=== PATIENT | female | born 1945 | race Caucasian/White ===

== ENCOUNTER 2016-04-20 09:50 | Outpatient (RCR) | payer MEDICARE, OTHER ==
--- OUTSIDE RECORDS SUMMARY | 2016-02-01 09:23 | XMS REPORT | Continuity of Care Document ---
Author Author [facility] Organization [facility] Address Unknown Phone Unavailable Care Team Providers Care Risk Control Consultant Name Role Phone SUNITHA LOBO MD PCP Insurance Providers Payer Name Policy Number Subscriber Name Relationship [employer] [id number] Petrona Lee 20 Self / Same As Patient [employer] [id number] Petrona Lee 20 Self / Same As Patient Advance Directives Directive Response Recorded Date/Time Advance Directives Yes 01/25/15 4:51am Health Care Power of Head Of It No 01/25/15 4:51am Organ Donor No 01/25/15 4:51am Problems No problem information available. Medications Current Home Medications Medication Dose Units Route Directions Days/Qty Instructions Start Date Budesonide/Formoterol Fumarate 10.2 Gm 2 Puff Inhalation Twice A Day 08/09/13 Fexofenadine Hcl 60 Mg 60 Mg Oral Daily 08/09/13 Albuterol 8.5 Gm 1 Puff Inhalation Every 4HRS as needed for Shortness Of Breath PRN SHORTNESS OF BREATH 08/09/13 Rosuvastatin Calcium 20 Mg 0.5 Each Oral Bedtime 04/02/14 Omeprazole 20 Mg 20 Mg Oral Daily 30 04/02/14 Ondansetron 8 Mg 8 Mg Oral Every 8HRS as needed for Nausea 04/02/14 Albuterol Sulfate 8.5 Gm 2 Puff Inhalation Every 4HRS as needed for Wheezing 1 01/25/15 Levofloxacin 500 Mg 500 Mg Oral Daily 10 01/25/15 D-Methorphan Hb/Prometh Hcl 118 Ml 5-10 Ml Oral Every 4HRS as needed for Cough 120 01/25/15 Past Home Medications Medication Directions Ordered Status Rosuvastatin Calcium 10 Mg Tablet, 10 Mg Oral Bedtime 08/09/13 Discontinued Scopolamine 1.5 Mg Patch, 1.5 Mg Transderm Once for Nausea/Vomiting 08/14/13 Discontinued Oxycodone/Acetaminophen 1 Tab Tablet, 1-2 Tab Oral Give Every 4 Hrs On Schedule as needed for Pain 08/15/13 Discontinued Ondansetron Hcl 4 Mg Tab, 4 Mg Oral Every 6 Hours as needed for Nausea/ Vomiting 08/15/13 Discontinued Social History Social History Problem Response Recorded Date/Time Alcohol Use Denies Use 01/25/2015 4:51am Recreational Drug Use No 01/25/2015 4:51am Recent Foreign Travel No 08/14/2013 5:54pm Recent Infectious Disease Exposure No 08/14/2013 5:54pm Hospitalization with Isolation Denies 09/04/2013 2:06pm Hospital Discharge Instructions Current inpatient/outpatient. Discharge instructions are currently unavailable. Plan of Care Prescriptions Functional Status No functional status results. Allergies, Adverse Reactions, Alerts Allergen Type Severity Reaction Status Last Updated Iodinated Contrast Media - IV Dye Allergy Severe HIVES Active 09/04/13 Codeine Allergy Intermediate RASH, CAN TAKE PERCOCET Active 04/09/14 Soap Allergy Unknown rash Active 09/05/13 povidone-iodine ([id number]) Allergy Unknown rash Active 09/05/13 Immunizations Name Given Type Date of Influenza Vaccine 12/11/13 Historical Tetanus Booster (TDap) Less than 5yrs Historical Vital Signs No known vital signs results. Results Laboratory Results Test Name Result Units Flags Reference Collection Date/Time Result Date/ Time Comments Triglycerides Level 133 MG/DL <150 08/17/2015 9:20am 08/17/2015 10: 23am Cholesterol Level 191 MG/DL < 200 08/17/2015 9:20am 08/17/2015 10:23am HDL Cholesterol 55 MG/DL 40-60 08/17/2015 9:20am 08/17/2015 10:23am LDL Cholesterol Direct 118 MG/DL 1-129 08/17/2015 9:20am 08/17/2015 10: 23am VLDL Cholesterol 27 MG/DL 5-40 08/17/2015 9:20am 08/17/2015 10:23am Thyroid Stimulating Hormone (TSH) 3.77 UIU/ML 0.35-4.94 08/17/2015 9: 20am 08/17/2015 10:53am Pending Laboratory Results Test Name Collection Date/Time Procedures No known history of procedures. Encounters Encounter Location Arrival/Admit Date Discharge/Depart Date Attending Provider Registered Clinic [facility] 08/17/15 9:10am SUNITHA LOBO MD Discharged Recurring [facility] 08/17/15 9:09am 11:59pm JIGNESH SIMMONS
[2016-02-01 09:55] LABS: BASOPHILS % (AUTO) 1 % (0-10); EOSINOPHILS # (AUTO) 0.2 10^3/uL (0.0-0.3); EOSINOPHILS % (AUTO) 3 % (0-10); LYMPHOCYTES # (AUTO) 0.9 X 10^3 (1.0-4.0); LYMPHOCYTES % (AUTO) 18 % (12-44); MEAN CORPUSCULAR HEMOGLOBIN 27 PG (25-34); MEAN CORPUSCULAR HGB CONC 33 G/DL (32-36); MEAN CORPUSCULAR VOLUME 80 FL (80-99); MEAN PLATELET VOLUME 12.9 FL (7.4-10.4); MONOCYTES # (AUTO) 0.5 X 10^3 (0.0-1.0); MONOCYTES % (AUTO) 10 % (0-12); NEUTROPHILS # (AUTO) 3.5 X 10^3 (1.8-7.8); NEUTROPHILS % (AUTO) 69 % (42-75); PLATELET COUNT 207 10^3/uL (130-400); RED BLOOD COUNT 4.35 10^6/uL (4.35-5.85); WHITE BLOOD COUNT 5.1 10^3/uL (4.3-11.0)
[2016-02-01 10:47] LABS: ALANINE AMINOTRANSFERASE 18 U/L (0-55); ALBUMIN 3.7 G/DL (3.2-4.5); ANION GAP 8 MMOL/L (5-14); ASPARTATE AMINO TRANSFERASE 19 U/L (5-34); BILIRUBIN,TOTAL 0.2 MG/DL (0.1-1.0); BLOOD UREA NITROGEN 22 MG/DL (7-18); BUN/CREATININE RATIO 28; CALCIUM 8.9 MG/DL (8.5-10.1); CARBON DIOXIDE 23 MMOL/L (21-32); CHLORIDE 108 MMOL/L (98-107); GFR ESTIMATED > 60; GLUCOSE 107 MG/DL (70-105); POTASSIUM 3.8 MMOL/L (3.6-5.0); SODIUM 139 MMOL/L (135-145); TOTAL PROTEIN 6.3 G/DL (6.4-8.2)
[~2016-04-20 09:50] MED LIST: ALBU8.5H2 IH; BUDE6HFA IH; D-ME118S7 PO; DENOSUMAB 60 MG/1 ML (PROLIA) CANCER CTR SQ SCH; FEXO-14 PO; FLUT9.9S NS; LEVO500T2 PO; OMEP20CA12 PO; ONDA8TAB13 PO; ONDN4T PO; OXYC1TAB87 PO; ROSU10TA12 PO; ROSU20TA14 PO; RT-ALBUINH IH; SCP1.5TD TD
[2016-04-20 09:53] LABS: BASOPHILS % (AUTO) 1 % (0-10); EOSINOPHILS # (AUTO) 0.2 10^3/uL (0.0-0.3); EOSINOPHILS % (AUTO) 3 % (0-10); LYMPHOCYTES % (AUTO) 22 % (12-44); MEAN CORPUSCULAR HEMOGLOBIN 25 PG (25-34); MEAN CORPUSCULAR HGB CONC 32 G/DL (32-36); MEAN CORPUSCULAR VOLUME 77 FL (80-99); MEAN PLATELET VOLUME 12.4 FL (7.4-10.4); MONOCYTES # (AUTO) 0.4 X 10^3 (0.0-1.0); MONOCYTES % (AUTO) 8 % (0-12); NEUTROPHILS # (AUTO) 3.1 X 10^3 (1.8-7.8); NEUTROPHILS % (AUTO) 66 % (42-75); PLATELET COUNT 198 10^3/uL (130-400); RED BLOOD COUNT 4.64 10^6/uL (4.35-5.85); RED CELL DISTRIBUTION WIDTH 15.8 % (10.0-14.5); WHITE BLOOD COUNT 4.7 10^3/uL (4.3-11.0)
[2016-04-20 10:24] LABS: ALANINE AMINOTRANSFERASE 20 U/L (0-55); ALBUMIN 3.8 G/DL (3.2-4.5); ANION GAP 10 MMOL/L (5-14); ASPARTATE AMINO TRANSFERASE 18 U/L (5-34); BILIRUBIN,TOTAL 0.3 MG/DL (0.1-1.0); BLOOD UREA NITROGEN 14 MG/DL (7-18); BUN/CREATININE RATIO 17; CALCIUM 9.1 MG/DL (8.5-10.1); CARBON DIOXIDE 23 MMOL/L (21-32); CHLORIDE 105 MMOL/L (98-107); CREATININE SERUM 0.84 MG/DL (0.60-1.30); GFR ESTIMATED > 60; GLUCOSE 126 MG/DL (70-105); POTASSIUM 4.2 MMOL/L (3.6-5.0); SODIUM 138 MMOL/L (135-145); TOTAL PROTEIN 6.5 G/DL (6.4-8.2)
== END 2016-05-01 | disposition home or self-care (01) ==
LOC: ONC 09:50
PROVIDERS: ATTEND Internal Medicine Hematology & Oncology
DX: C50.412 Malignant neoplasm of upper-outer quadrant of left female breast (principal); M85.80 Other specified disorders of bone density and structure, unspecified site; I89.0 Lymphedema, not elsewhere classified; J44.9 Chronic obstructive pulmonary disease, unspecified; E78.00 Pure hypercholesterolemia, unspecified; Z17.0 Estrogen receptor positive status [ER+]; Z90.13 Acquired absence of bilateral breasts and nipples; Z92.21 Personal history of antineoplastic chemotherapy; Z92.3 Personal history of irradiation; Z79.811 Long term (current) use of aromatase inhibitors; Z79.899 Other long term (current) drug therapy; Z45.2 Encounter for adjustment and management of vascular access device
CPT/HCPCS: 36591; 80053; 85025; 96372; 96523; 99213

== ENCOUNTER → 2016-08-18 | Outpatient (CLI) | payer MEDICARE, OTHER ==
[~2016-08-18] MED LIST changes: -DENOSUMAB 60 MG/1 ML (PROLIA) CANCER CTR SQ SCH
--- NOTE | 2016-08-18 10:48 | Diagnostic Imaging Report ---
Examination: DEXA scan. Indication: osteopenia Technique: Bone mineral density estimated based on dual energy radiography over the lumbar spine and femoral necks, was performed. Findings: The lumbar spine T-score is minus 2. This is a 3.5% increased density compared to 08/14/2014. T score over the left femoral neck is -1 and on the right side is also -1. This is a 7% increased density measurement compared to 2014. IMPRESSION: Osteopenia. Dictated by: Dictated on workstation # [id number]
== END ==
LOC: RAD 08:32
PROVIDERS: ATTEND Nurse Practitioner Adult Health
DX: M85.88 Other specified disorders of bone density and structure, other site (principal); C50.412 Malignant neoplasm of upper-outer quadrant of left female breast; Z92.29 Personal history of other drug therapy
CPT/HCPCS: 77080

== ENCOUNTER 2016-08-24 09:13 | Outpatient (RCR) | payer MEDICARE, OTHER ==
[2016-07-13 10:59] LABS: BASOPHILS % (AUTO) 1 % (0-10); EOSINOPHILS # (AUTO) 0.2 10^3/uL (0.0-0.3); EOSINOPHILS % (AUTO) 5 % (0-10); LYMPHOCYTES % (AUTO) 23 % (12-44); MEAN CORPUSCULAR HEMOGLOBIN 23 PG (25-34); MEAN CORPUSCULAR HGB CONC 31 G/DL (32-36); MEAN CORPUSCULAR VOLUME 74 FL (80-99); MEAN PLATELET VOLUME 11.8 FL (7.4-10.4); MONOCYTES # (AUTO) 0.4 X 10^3 (0.0-1.0); MONOCYTES % (AUTO) 10 % (0-12); NEUTROPHILS # (AUTO) 2.6 X 10^3 (1.8-7.8); NEUTROPHILS % (AUTO) 62 % (42-75); PLATELET COUNT 243 10^3/uL (130-400); RED BLOOD COUNT 4.28 10^6/uL (4.35-5.85); RED CELL DISTRIBUTION WIDTH 16.9 % (10.0-14.5); WHITE BLOOD COUNT 4.3 10^3/uL (4.3-11.0)
[2016-07-13 11:52] LABS: ALANINE AMINOTRANSFERASE 21 U/L (0-55); ALBUMIN 3.7 G/DL (3.2-4.5); ANION GAP 8 MMOL/L (5-14); ASPARTATE AMINO TRANSFERASE 19 U/L (5-34); BILIRUBIN,TOTAL 0.4 MG/DL (0.1-1.0); BLOOD UREA NITROGEN 16 MG/DL (7-18); BUN/CREATININE RATIO 20; CALCIUM 8.8 MG/DL (8.5-10.1); CARBON DIOXIDE 25 MMOL/L (21-32); CHLORIDE 106 MMOL/L (98-107); CREATININE SERUM 0.81 MG/DL (0.60-1.30); GFR ESTIMATED > 60; GLUCOSE 105 MG/DL (70-105); POTASSIUM 3.9 MMOL/L (3.6-5.0); SODIUM 139 MMOL/L (135-145); TOTAL PROTEIN 6.4 G/DL (6.4-8.2)
[~2016-08-24 09:13] MED LIST changes: +FERRIC CARBOXYMALTOSE (CANCER) 750 MG in NS (IVPB) CANCER CENTER 250 ML IV SCH
== END 2016-08-30 | disposition home or self-care (01) ==
LOC: ONC 09:13
PROVIDERS: ATTEND Internal Medicine Hematology & Oncology
DX: C50.412 Malignant neoplasm of upper-outer quadrant of left female breast (principal); M85.80 Other specified disorders of bone density and structure, unspecified site; I89.0 Lymphedema, not elsewhere classified; J44.9 Chronic obstructive pulmonary disease, unspecified; E78.00 Pure hypercholesterolemia, unspecified; Z17.0 Estrogen receptor positive status [ER+]; Z90.13 Acquired absence of bilateral breasts and nipples; Z92.21 Personal history of antineoplastic chemotherapy; Z92.3 Personal history of irradiation; Z79.811 Long term (current) use of aromatase inhibitors; Z79.899 Other long term (current) drug therapy; Z45.2 Encounter for adjustment and management of vascular access device
CPT/HCPCS: 36591; 80053; 82274; 82728; 83540; 85025; 85045; 96365; 96523; 99213

== ENCOUNTER 2016-10-05 09:24 | Outpatient (RCR) | payer MEDICARE, OTHER ==
[~2016-10-05 09:24] MED LIST changes: -FERRIC CARBOXYMALTOSE (CANCER) 750 MG in NS (IVPB) CANCER CENTER 250 ML IV SCH
[2016-10-05 09:50] LABS: BASOPHILS % (AUTO) 1 % (0-10); EOSINOPHILS # (AUTO) 0.3 10^3/uL (0.0-0.3); EOSINOPHILS % (AUTO) 5 % (0-10); LYMPHOCYTES % (AUTO) 20 % (12-44); MEAN CORPUSCULAR HEMOGLOBIN 27 PG (25-34); MEAN CORPUSCULAR HGB CONC 33 G/DL (32-36); MEAN CORPUSCULAR VOLUME 82 FL (80-99); MEAN PLATELET VOLUME 12.2 FL (7.4-10.4); MONOCYTES # (AUTO) 0.4 X 10^3 (0.0-1.0); MONOCYTES % (AUTO) 8 % (0-12); NEUTROPHILS # (AUTO) 3.3 X 10^3 (1.8-7.8); NEUTROPHILS % (AUTO) 66 % (42-75); PLATELET COUNT 165 10^3/uL (130-400); RED BLOOD COUNT 5.07 10^6/uL (4.35-5.85); RED CELL DISTRIBUTION WIDTH 21.4 % (10.0-14.5)
[2016-10-05 11:07] LABS: ALANINE AMINOTRANSFERASE 32 U/L (0-55); ALBUMIN 3.8 GM/DL (3.2-4.5); ANION GAP 7 MMOL/L (5-14); ASPARTATE AMINO TRANSFERASE 21 U/L (5-34); BILIRUBIN,TOTAL 0.4 MG/DL (0.1-1.0); BLOOD UREA NITROGEN 22 MG/DL (7-18); BUN/CREATININE RATIO 28; CALCIUM 9.5 MG/DL (8.5-10.1); CARBON DIOXIDE 27 MMOL/L (21-32); CHLORIDE 105 MMOL/L (98-107); CREATININE SERUM 0.78 MG/DL (0.60-1.30); GFR ESTIMATED > 60; GLUCOSE 102 MG/DL (70-105); POTASSIUM 4.1 MMOL/L (3.6-5.0); SODIUM 139 MMOL/L (135-145); TOTAL PROTEIN 6.5 GM/DL (6.4-8.2)
[2016-10-05] MEDS ORDERED: DENOSUMAB 60 MG/1 ML (PROLIA) CANCER CTR SQ ONE (11:30)
[2016-11-11] MEDS ORDERED: ANAS1TAB7 PO (09:15)
[2016-11-11] MEDS ORDERED: CETI10TA20 PO (09:15)
[2016-11-11] MEDS ORDERED: LISI10TA2 PO (09:15)
[2016-11-18] MEDS ORDERED: TRAM50TA2 PO (11:52)
== END 2016-12-10 | disposition home or self-care (01) ==
LOC: ONC 09:24
PROVIDERS: ATTEND Internal Medicine Hematology & Oncology
DX: C50.412 Malignant neoplasm of upper-outer quadrant of left female breast (principal); M85.80 Other specified disorders of bone density and structure, unspecified site; I89.0 Lymphedema, not elsewhere classified; J44.9 Chronic obstructive pulmonary disease, unspecified; E78.00 Pure hypercholesterolemia, unspecified; Z17.0 Estrogen receptor positive status [ER+]; Z90.13 Acquired absence of bilateral breasts and nipples; Z92.21 Personal history of antineoplastic chemotherapy; Z92.3 Personal history of irradiation; Z79.811 Long term (current) use of aromatase inhibitors; Z79.899 Other long term (current) drug therapy
CPT/HCPCS: 36591; 80053; 85025; 96372

== ENCOUNTER 2016-11-11 05:32 | Outpatient (CLI) | payer MEDICARE, OTHER ==
[~2016-11-11] VITALS: Ht 160 cm; Wt 83.9 kg
[2016-11-11] MEDS ORDERED: LISI10TA2 PO (09:15)
[2016-11-11] MEDS ORDERED: CETI10TA20 PO (09:15)
[2016-11-11] MEDS ORDERED: ANAS1TAB7 PO (09:15)
== END 2016-11-11 09:26 ==
LOC: PREOP 05:32
PROVIDERS: ATTEND Surgery
DX: Z01.818 Encounter for other preprocedural examination (principal); Z95.828 Presence of other vascular implants and grafts; Z85.3 Personal history of malignant neoplasm of breast

== ENCOUNTER 2016-11-18 08:59 | Day surgery (SDC) | payer MEDICARE, OTHER ==
[~2016-11-18] VITALS: Ht 160 cm; Wt 83.9 kg
[~2016-11-18 08:59] MED LIST changes: +ANAS1TAB7 PO; +CETI10TA20 PO; +LISI10TA2 PO
[2016-11-18] MEDS ORDERED: ceFAZolin 1 GM/NS 50 ML IVPB IV ONE ×2 (09:15)
[2016-11-18] MEDS ORDERED: CATHETER FLUSH 10 ML SYR IV PRN (09:15)
[2016-11-18 09:20] VITALS: BP 118/90
[2016-11-18] MEDS ORDERED: LACTATED RINGERS 1,000 ML IV PRN (09:30)
[2016-11-18] MEDS ORDERED: FAMOTIDINE 20MG/2ML IV (PEPCID) IV ONE (09:30)
[2016-11-18] MEDS ORDERED: ONDANSETRON 4 MG/2 ML (SDV) Z0FRAN IV ONE (09:30)
--- NOTE | 2016-11-18 09:37 | History & Physicial ---
History of Present Illness History of Present Illness Reason for visit/HPI To undergo removal of infusaport, having completed adjuvant chemotherapy for breast carcinoma Date of Admission Date Seen by Provider: Nov 18, 2016 Time Seen by Provider: 09:34 I consulted on this patient on 11/18/16 09:33 Attending Physician Diana Oliva MD Admitting Physician Zoe James MD Consult Allergies and Home Medications Allergies Coded Allergies: Iodinated Contrast- Oral and IV Dye (Unverified Allergy, Severe, HIVES, 11/11/16) codeine (Unverified Allergy, Intermediate, RASH, CAN TAKE PERCOCET, 11/11/16 ) paroxetine (Verified Allergy, Intermediate, RASH, 11/11/16) povidone-iodine (Unverified Allergy, Unknown, rash, 11/11/16) soap (Unverified Allergy, Unknown, rash, 11/11/16) Home Medications Anastrozole 1 Mg Tablet, 1 MG PO DAILY, (Reported) Budesonide/Formoterol Fumarate 10.2 Gm Hfa.aer.ad, 2 PUFF IH BID, (Reported) Cetirizine HCl 10 Mg Tablet, 10 MG PO DAILY, (Reported) Fluticasone Propionate 9.9 Ml [place].susp, 1 SPRAY NS DAILY, (Reported) Lisinopril 10 Mg Tablet, 5 MG PO DAILY, (Reported) Omeprazole 20 Mg Capsule.dr, 20 MG PO DAILY, #30 (Reported) Rosuvastatin Calcium 20 Mg Tablet, 0.5 EACH PO HS, (Reported) Past F[place]-Lljiqs Hx Patient Social History Employed/Student: retired Recent Foreign Travel: No Contact w/other who traveled: No Recent Hopitalizations: No Immunizations Up To Date Tetanus Booster (TDap): Less than 5yrs Date of Influenza Vaccine: Dec 02, 2015 Seasonal Allergies Seasonal Allergies: Yes Surgeries Yes Breast Respiratory No Currently Using CPAP: No Currently Using BIPAP: No Cardiovascular Yes High Cholesterol, Hypertension Neurological No Reproductive System Hx Reproductive Disorders: No Sexually Transmitted Disease: No HIV/AIDS: No Female Reproductive Disorders: Denies Genitourinary No Gastrointestinal No Gastroesophageal Reflux Musculoskeletal No Endocrine History of Endocrine Disorders: No HEENT History of HEENT Disorders: No Loss of Vision: Bilateral Hearing Impairment: Hard of Hearing Cancer Yes Breast Did You Recieve Any Treatments: Yes Type of Treatment: Chemotherapy, Radiation, Surgical Intervention Blood Transfusions Adverse Reaction to a Blood Tr: No Family Medical History Family Hx: Cardiovascular disease 19 FATHER 19 MOTHER Coronary thrombosis 19 MOTHER Diabetes mellitus 19 FATHER FH: breast cancer 19 MOTHER Constitutional: no symptoms reported EENTM: no symptoms reported Respiratory: no symptoms reported Cardiovascular: no symptoms reported Gastrointestinal: no symptoms reported Genitourinary: no symptoms reported Musculoskeletal: no symptoms reported Skin: no symptoms reported Psychiatric/Neurological: No Symptoms Reported Physical Exam Vital Signs Capillary Refill : General Appearance: No Apparent Distress HEENT: Normal ENT Inspection Neck: Normal Inspection Respiratory: Lungs Clear Cardiovascular: Regular Rate, Rhythm Gastrointestinal: Non Tender, Soft Extremity: Normal Inspection Neurologic/Psychiatric: Alert, Oriented x3 Skin: Warm/Dry Assessment/Plan Assessment and Plan Lady with treated left breast carcinoma, for removal of infusaport Problems: Admission Diagnosis Treated left breast carcinoma DIANA OLIVA MD Nov 18, 2016 9:37 am
[2016-11-18] MEDS ORDERED: FAMOTIDINE 20MG/2ML IV (PEPCID) ONE (09:38)
[2016-11-18] MEDS ORDERED: ONDANSETRON 4 MG/2 ML (SDV) Z0FRAN ONE (09:38)
--- NOTE | 2016-11-18 09:38 | Progress Note-Pre Operative ---
Pre-Operative Progress Note H&P Reviewed The H&P was reviewed, patient examined and no changes noted. Date Seen by Provider: Nov 18, 2016 Time Seen by Provider: 09:38 Date H&P Reviewed: Nov 18, 2016 Time H&P Reviewed: 09:38 Pre-Operative Diagnosis: Treated left breast carcinoma DIANA LARSON MD Nov 18, 2016 9:38 am
[2016-11-18] MEDS ORDERED: proPOfol 200 MG/20 ML (DIPRIVAN) VIAL IV ONE (09:49)
[2016-11-18] MEDS ORDERED: LIDOCAINE PF 2% 5 ML (XYLOCAINE) VIAL ONE (09:49)
[2016-11-18] MEDS ORDERED: fentaNYL INJECTION 100 MCG/2 ML AMP ONE (09:50)
[2016-11-18] MEDS ORDERED: LACTATED RINGERS 1,000 ML IV ONE (09:54)
[2016-11-18] MEDS ORDERED: BUPIVACAINE 0.25% 30 ML (SENSORCAINE) VIAL ONE (10:06)
--- NOTE | 2016-11-18 11:50 | Operative Report ---
Operative Report Date of Procedure/Surgery Nov 18, 2016 Surgeon (s) DIANA LARSON MD Ramp Boss (s): Not applicable Post-Operative Diagnosis Same Procedure Performed Removal of PowerPort Description of Procedure Anesthesia Type: MAC Estimated blood loss (mL): Minimal Specimen(s) collected/removed PowerPort Description of the Procedure indication for the procedure: This lady has completed adjuvant chemotherapy to manage carcinoma of the left breast. After an adequate discussion with her oncologist, it was elected to remove her PowerPort. Informed consent was obtained after reviewing the procedure in detail. Description of the procedure: She was placed supine on the operative table and our ELECTRONIC INTELLIGENCE OFFICER administered sedation, monitoring of vital signs. A gram of Ancef was administered intravenously as prophylaxis against wound infection sequential compression devices were placed around her legs, to minimize the risk of venous thrombosis Right infraclavicular fossa was prepared and draped in the usual sterile manner. Local anesthesia was achieved using 0.25 percent Marcaine. A secondary incision was made along the previous scar and the PowerPort removed without risking air embolism. The cavity was irrigated with saline and the incision closed using 3-0 Vicryl for the subcutaneous tissue and 4-0 Vicryl for skin, in a subcuticular fashion via she tolerated the procedure well and was taken to the recovery room in a stable condition. Findings of the Procedure see operative report Allergies and Home Medications Allergies Coded Allergies: Iodinated Contrast- Oral and IV Dye (Unverified Allergy, Severe, HIVES, 11/11/16) codeine (Unverified Allergy, Intermediate, RASH, CAN TAKE PERCOCET, 11/11/16 ) paroxetine (Verified Allergy, Intermediate, RASH, 11/11/16) povidone-iodine (Unverified Allergy, Unknown, rash, 11/11/16) soap (Unverified Allergy, Unknown, rash, 11/11/16) Home Medications Anastrozole 1 Mg Tablet, 1 MG PO DAILY, (Reported) Budesonide/Formoterol Fumarate 10.2 Gm Hfa.aer.ad, 2 PUFF IH BID, (Reported) Cetirizine HCl 10 Mg Tablet, 10 MG PO DAILY, (Reported) Fluticasone Propionate 9.9 Ml [place].susp, 1 SPRAY NS DAILY, (Reported) Lisinopril 10 Mg Tablet, 5 MG PO DAILY, (Reported) Omeprazole 20 Mg Capsule.dr, 20 MG PO DAILY, #30 (Reported) Rosuvastatin Calcium 20 Mg Tablet, 0.5 EACH PO HS, (Reported) DIANA LARSON MD Nov 18, 2016 11:50 am
[2016-11-18] MEDS ORDERED: TRAM50TA2 PO (11:52)
--- NOTE | 2016-11-18 11:52 | Discharge Inst-Simple/Standard ---
Discharge Inst-Standard Discharge Medications New, Converted or Re-Newed RX: RX on Chart Patient Instructions/Follow Up Plan of Care/Instructions/FU: Band-Aid off in 48 hours Activity as Tolerated: Yes Discharge Diet: No Restrictions DIANA LARSON MD Nov 18, 2016 11:52 am
[2016-11-18 12:20] VITALS: BP 141/78
[2016-11-18 12:50] VITALS: BP 148/81
[2016-11-18 13:10] VITALS: BP 148/81
== END 2016-11-18 13:10 | disposition home or self-care (01) ==
LOC: SDC 08:59
PROVIDERS: ATTEND Surgery
DX: C50.912 Malignant neoplasm of unspecified site of left female breast (principal); Z92.21 Personal history of antineoplastic chemotherapy; E78.00 Pure hypercholesterolemia, unspecified; I10 Essential (primary) hypertension; J44.9 Chronic obstructive pulmonary disease, unspecified; Z79.899 Other long term (current) drug therapy
CPT/HCPCS: 87081

== ENCOUNTER 2017-10-24 09:19 | Outpatient (RCR) | payer MEDICARE, OTHER ==
[2017-10-24 09:57] LABS: BASOPHILS # (AUTO) 0.1 10^3/uL (0.0-0.1); BASOPHILS % (AUTO) 1 % (0-10); EOSINOPHILS # (AUTO) 0.3 10^3/uL (0.0-0.3); EOSINOPHILS % (AUTO) 6 % (0-10); HEMATOCRIT 44 % (35-52); HEMOGLOBIN 14.7 G/DL (11.5-16.0); LYMPHOCYTES % (AUTO) 22 % (12-44); MEAN CORPUSCULAR HEMOGLOBIN 29 PG (25-34); MEAN CORPUSCULAR HGB CONC 34 G/DL (32-36); MEAN CORPUSCULAR VOLUME 86 FL (80-99); MEAN PLATELET VOLUME 13.5 FL (7.4-10.4); MONOCYTES # (AUTO) 0.4 X 10^3 (0.0-1.0); MONOCYTES % (AUTO) 8 % (0-12); NEUTROPHILS # (AUTO) 2.9 X 10^3 (1.8-7.8); NEUTROPHILS % (AUTO) 63 % (42-75); PLATELET COUNT 154 10^3/uL (130-400); RED BLOOD COUNT 5.11 10^6/uL (4.35-5.85); RED CELL DISTRIBUTION WIDTH 13.9 % (10.0-14.5); WHITE BLOOD COUNT 4.7 10^3/uL (4.3-11.0)
[2017-10-24 10:11] LABS: ALANINE AMINOTRANSFERASE 26 U/L (0-55); ALBUMIN 3.9 GM/DL (3.2-4.5); ALKALINE PHOSPHATASE 72 U/L (40-136); BILIRUBIN,TOTAL 0.5 MG/DL (0.1-1.0); BUN/CREATININE RATIO 27; CALCIUM 9.7 MG/DL (8.5-10.1); CARBON DIOXIDE 26 MMOL/L (21-32); CHLORIDE 106 MMOL/L (98-107); CREATININE SERUM 0.82 MG/DL (0.60-1.30); GFR ESTIMATED > 60; GLUCOSE 102 MG/DL (70-105); POTASSIUM 4.2 MMOL/L (3.6-5.0); SODIUM 138 MMOL/L (135-145); TOTAL PROTEIN 6.9 GM/DL (6.4-8.2)
[2017-10-24] MEDS ORDERED: DENOSUMAB 60 MG/1 ML (PROLIA) CANCER CTR SQ SCH (10:30)
== END 2017-11-10 | disposition home or self-care (01) ==
LOC: ONC 09:19
PROVIDERS: ATTEND Internal Medicine Hematology & Oncology
DX: C50.912 Malignant neoplasm of unspecified site of left female breast (principal); M85.80 Other specified disorders of bone density and structure, unspecified site; I10 Essential (primary) hypertension; E78.5 Hyperlipidemia, unspecified; J44.9 Chronic obstructive pulmonary disease, unspecified; Z17.0 Estrogen receptor positive status [ER+]; Z90.13 Acquired absence of bilateral breasts and nipples; Z79.811 Long term (current) use of aromatase inhibitors; Z79.899 Other long term (current) drug therapy; Z92.21 Personal history of antineoplastic chemotherapy; Z92.3 Personal history of irradiation
CPT/HCPCS: 80053; 85025; 96372

== ENCOUNTER → 2017-10-24 | Outpatient (CLI) | payer MEDICARE, OTHER ==
[~2017-10-24] MED LIST changes: +TRAM50TA2 PO
== END ==
LOC: LAB 09:43
PROVIDERS: ATTEND Family Medicine
DX: Z00.00 Encounter for general adult medical examination without abnormal findings (principal); I10 Essential (primary) hypertension
CPT/HCPCS: 36415; 80061; 84443

== ENCOUNTER 2018-04-17 09:35 | Outpatient (RCR) | payer MEDICARE, OTHER ==
[2018-04-17 09:50] LABS: BASOPHILS % (AUTO) 1 % (0-10); EOSINOPHILS # (AUTO) 0.2 10^3/uL (0.0-0.3); EOSINOPHILS % (AUTO) 3 % (0-10); HEMATOCRIT 43 % (35-52); HEMOGLOBIN 14.3 G/DL (11.5-16.0); LYMPHOCYTES # (AUTO) 0.6 X 10^3 (1.0-4.0); LYMPHOCYTES % (AUTO) 12 % (12-44); MEAN CORPUSCULAR HEMOGLOBIN 29 PG (25-34); MEAN CORPUSCULAR HGB CONC 34 G/DL (32-36); MEAN CORPUSCULAR VOLUME 86 FL (80-99); MEAN PLATELET VOLUME 12.3 FL (7.4-10.4); MONOCYTES # (AUTO) 0.5 X 10^3 (0.0-1.0); MONOCYTES % (AUTO) 9 % (0-12); NEUTROPHILS # (AUTO) 3.9 X 10^3 (1.8-7.8); NEUTROPHILS % (AUTO) 75 % (42-75); PLATELET COUNT 147 10^3/uL (130-400); RED CELL DISTRIBUTION WIDTH 13.9 % (10.0-14.5); WHITE BLOOD COUNT 5.2 10^3/uL (4.3-11.0)
[2018-04-17 10:35] LABS: ALANINE AMINOTRANSFERASE 21 U/L (0-55); ALBUMIN 3.8 GM/DL (3.2-4.5); ALKALINE PHOSPHATASE 66 U/L (40-136); BILIRUBIN,TOTAL 0.5 MG/DL (0.1-1.0); BUN/CREATININE RATIO 21; CALCIUM 9.6 MG/DL (8.5-10.1); CARBON DIOXIDE 24 MMOL/L (21-32); CHLORIDE 106 MMOL/L (98-107); CREATININE SERUM 0.91 MG/DL (0.60-1.30); GFR ESTIMATED > 60; GLUCOSE 94 MG/DL (70-105); POTASSIUM 4.2 MMOL/L (3.6-5.0); SODIUM 139 MMOL/L (135-145); TOTAL PROTEIN 6.6 GM/DL (6.4-8.2)
[2018-04-17] MEDS ORDERED: DENOSUMAB 60 MG/1 ML (PROLIA) CANCER CTR SQ SCH (10:45)
== END 2018-07-16 | disposition home or self-care (01) ==
LOC: ONC 09:35
PROVIDERS: ATTEND Internal Medicine Hematology & Oncology
DX: C50.412 Malignant neoplasm of upper-outer quadrant of left female breast (principal); M85.80 Other specified disorders of bone density and structure, unspecified site; I10 Essential (primary) hypertension; E78.5 Hyperlipidemia, unspecified; J44.9 Chronic obstructive pulmonary disease, unspecified; Z17.0 Estrogen receptor positive status [ER+]; Z90.13 Acquired absence of bilateral breasts and nipples; Z79.811 Long term (current) use of aromatase inhibitors; Z79.899 Other long term (current) drug therapy; Z92.21 Personal history of antineoplastic chemotherapy; Z92.3 Personal history of irradiation
CPT/HCPCS: 36415; 80053; 85025; 96372

== ENCOUNTER 2018-04-19 08:10 | Emergency (ER) | payer MEDICARE, OTHER | END 2018-04-19 11:36 | disposition home or self-care (01) | LOC: ER 08:10 ==

== ENCOUNTER → 2018-09-11 | Outpatient (CLI) | payer MEDICARE, OTHER ==
--- NOTE | 2018-09-11 11:04 | Diagnostic Imaging Report ---
INDICATION: Postmenopausal screening for osteoporosis. COMPARISON: FINDINGS: AP Spine L1-L4: [BMD (g/cm2): 0.947] [T-Score: -2.1] [Z-Score: -0.7] [BMD Previous: 0.956] [BMD % Change: -0.9] LT Hip Neck: [BMD (g/cm2): 0.822] [T-Score: -1.6] [Z-Score: 0.0] LT Hip Total: [BMD (g/cm2):0.895] [T-Score:-0.9] [Z-Score: 0.5] [BMD Previous: 0.887] [BMD % Change: 0.9] RT Hip Neck: [BMD (g/cm2):0.847] [T-Score:-1.4] [Z-Score:0.2] RT Hip Total: [BMD (g/cm2):0.863] [T-score:-1.1] [Z-Score:0.2] [BMD Previous:0.880] [BMD % Change:-1.9] *Indicates significant change from prior examination based on 95% confidence level. World Health Organization criteria for BMD interpretation classify patients as Normal (T-score at or above -1.0), Osteopenic (T-score between -1.0 and -2.5) or Osteoporotic (T-score at or below -2.5). LIMITATIONS AND MODIFICATION: None. FRACTURE RISK (FRAX SCORE): The ten year probability of (%): Major Osteoporotic Fracture: [10.4] Hip Fracture: [1.7] IMPRESSION: 1. Osteopenia (Low bone mass). 2. No significant change in bone mineral density since prior examination. 3. See below National Osteoporosis Foundation guidelines on when to potentially initiate pharmacologic therapy. Based on the National Osteoporosis Foundation Guidelines, pharmacologic treatment should be initiated in any of the following, unless clinical conditions suggest otherwise: * Any patient with prior fragility fracture of the hip or vertebrae. A spine fracture indicates 5X risk for subsequent spine fracture and 2X risk for subsequent hip fracture. * Osteoporosis (T-score <-2.5). * Postmenopausal women and men age 50 and older with low bone mass/osteopenia (T-score between -1.0 and -2.5) by DXA and 10-year major osteoporotic fracture greater than 20% or a 10-year probability of hip fracture greater than 3%. These fracture risks are supplied above in the FRAX score, if applicable. * Clinician judgement and/or patient preferences may indicate treatment for people with 10-year fracture probabilities above or below these levels. * Dictated by: Dictated on workstation # [id number]
== END ==
LOC: RAD 08:29
PROVIDERS: ATTEND Nurse Practitioner Adult Health
DX: Z13.820 Encounter for screening for osteoporosis (principal); M85.89 Other specified disorders of bone density and structure, multiple sites; E89.40 Asymptomatic postprocedural ovarian failure; Z79.890 Hormone replacement therapy
CPT/HCPCS: 77080

== ENCOUNTER 2018-10-22 09:46 | Outpatient (RCR) | payer MEDICARE, OTHER ==
[~2018-10-22 09:46] MED LIST changes: -D-ME118S7 PO; +DENOSUMAB 60 MG/1 ML (PROLIA) CANCER CTR SQ SCH; +PROM118S4 PO
[2018-10-22 09:56] LABS: HEMATOCRIT 44 % (35-52); HEMOGLOBIN 14.5 G/DL (11.5-16.0); MEAN CORPUSCULAR HEMOGLOBIN 28 PG (25-34); MEAN CORPUSCULAR HGB CONC 33 G/DL (32-36); MEAN CORPUSCULAR VOLUME 86 FL (80-99); MEAN PLATELET VOLUME 13.3 FL (7.4-10.4); PLATELET COUNT 170 10^3/uL (130-400); RED CELL DISTRIBUTION WIDTH 14.1 % (10.0-14.5); WHITE BLOOD COUNT 5.6 10^3/uL (4.3-11.0)
[2018-10-22 09:57] LABS: BASOPHILS % (AUTO) 1 % (0-10); EOSINOPHILS # (AUTO) 0.3 10^3/uL (0.0-0.3); EOSINOPHILS % (AUTO) 5 % (0-10); LYMPHOCYTES # (AUTO) 1.1 X 10^3 (1.0-4.0); LYMPHOCYTES % (AUTO) 19 % (12-44); MONOCYTES # (AUTO) 0.4 X 10^3 (0.0-1.0); MONOCYTES % (AUTO) 7 % (0-12); NEUTROPHILS # (AUTO) 3.9 X 10^3 (1.8-7.8); NEUTROPHILS % (AUTO) 69 % (42-75)
[2018-10-22 10:16] LABS: ALBUMIN 3.9 GM/DL (3.2-4.5); BILIRUBIN,TOTAL 0.4 MG/DL (0.1-1.0); CALCIUM 10.3 MG/DL (8.5-10.1); CREATININE SERUM 0.95 MG/DL (0.60-1.30); POTASSIUM 4.3 MMOL/L (3.6-5.0); TOTAL PROTEIN 6.9 GM/DL (6.4-8.2)
== END 2019-01-20 | disposition home or self-care (01) ==
LOC: ONC 09:46
PROVIDERS: ATTEND Internal Medicine Hematology & Oncology
DX: E55.9 Vitamin D deficiency, unspecified (principal)
CPT/HCPCS: 80053; 82306; 85025; 96372

== ENCOUNTER 2019-04-22 09:54 | Outpatient (RCR) | payer MEDICARE, OTHER ==
[~2019-04-22 09:54] MED LIST changes: -CETI10TA20 PO; +CETI10TA21 PO; -TRAM50TA2 PO; +TRM50T PO
[2019-04-22 10:11] LABS: BASOPHILS % (AUTO) 1 % (0-10); EOSINOPHILS # (AUTO) 0.1 10^3/uL (0.0-0.3); EOSINOPHILS % (AUTO) 2 % (0-10); HEMATOCRIT 45 % (35-52); HEMOGLOBIN 14.6 G/DL (11.5-16.0); LYMPHOCYTES % (AUTO) 18 % (12-44); MEAN CORPUSCULAR HEMOGLOBIN 28 PG (25-34); MEAN CORPUSCULAR HGB CONC 33 G/DL (32-36); MEAN CORPUSCULAR VOLUME 86 FL (80-99); MEAN PLATELET VOLUME 12.6 FL (7.4-10.4); MONOCYTES # (AUTO) 0.4 X 10^3 (0.0-1.0); MONOCYTES % (AUTO) 8 % (0-12); NEUTROPHILS % (AUTO) 72 % (42-75); PLATELET COUNT 184 10^3/uL (130-400); WHITE BLOOD COUNT 5.6 10^3/uL (4.3-11.0)
[2019-04-22 10:42] LABS: BILIRUBIN,TOTAL 0.3 MG/DL (0.1-1.0); CALCIUM 10.6 MG/DL (8.5-10.1); CREATININE SERUM 0.97 MG/DL (0.60-1.30); POTASSIUM 4.2 MMOL/L (3.6-5.0)
[2019-04-29] MEDS ORDERED: ROSU10TA28 PO (12:46)
[2019-04-29] MEDS ORDERED: ERGO2000 PO (12:46)
[2019-04-29] MEDS ORDERED: CALC-857 PO (12:46)
[2019-04-29] MEDS ORDERED: OMEP20CA18 PO (12:46)
== END 2019-07-21 | disposition home or self-care (01) ==
LOC: ONC 09:54
PROVIDERS: ATTEND Internal Medicine Hematology & Oncology
DX: C50.412 Malignant neoplasm of upper-outer quadrant of left female breast (principal); M85.89 Other specified disorders of bone density and structure, multiple sites; M85.88 Other specified disorders of bone density and structure, other site; I89.0 Lymphedema, not elsewhere classified; Z79.899 Other long term (current) drug therapy; Z92.3 Personal history of irradiation; Z90.13 Acquired absence of bilateral breasts and nipples; Z92.21 Personal history of antineoplastic chemotherapy; Z17.0 Estrogen receptor positive status [ER+]; Z98.890 Other specified postprocedural states
CPT/HCPCS: 80053; 85025

== ENCOUNTER 2019-04-29 05:32 | Outpatient (CLI) | payer MEDICARE, OTHER ==
[~2019-04-29] VITALS: Ht 160 cm; Wt 72.7 kg
[~2019-04-29 05:32] MED LIST changes: +CETI10TA20 PO; -CETI10TA21 PO; -DENOSUMAB 60 MG/1 ML (PROLIA) CANCER CTR SQ SCH
[2019-04-29] MEDS ORDERED: OMEP-280 PO (12:46)
[2019-04-29] MEDS ORDERED: ROSU10TA28 PO (12:46)
[2019-04-29] MEDS ORDERED: ERGO2000 PO (12:46)
[2019-04-29] MEDS ORDERED: CALC-857 PO (12:46)
== END 2019-04-29 12:51 | disposition home or self-care (01) ==
LOC: PREOP 05:32
PROVIDERS: ATTEND Specialist
DX: Z01.818 Encounter for other preprocedural examination (principal)

== ENCOUNTER 2019-05-03 05:54 | Day surgery (SDC) | payer MEDICARE, OTHER ==
[~2019-05-03] VITALS: Ht 160 cm; Wt 72.7 kg
[~2019-05-03 05:54] MED LIST changes: +CALC-857 PO; -CETI10TA20 PO; +CETI10TA21 PO; +ERGO2000 PO; +OMEP20CA18 PO; +ROSU10TA28 PO
[2019-05-03 06:10] VITALS: BP 135/98
[2019-05-03] MEDS: TETRACAINE 0.5% OPHTH SOLN 4 ML BTL (SINGLE DOSE ONLY) OU PRN ×4 (06:12→06:34)
[2019-05-03] MEDS ORDERED: LIDOCAINE PF 1% 2 ML VIAL IR PRN (06:15)
[2019-05-03] MEDS ORDERED: MOXIFLOXACIN OPHTH SOLN 5 MG/ML 0.3 ML SYRINGE OP ONE (06:15)
[2019-05-03] MEDS ORDERED: TIMOLOL MALEATE 0.5% 5 ML (TIMOPTIC) BTL OU PRN (06:15)
[2019-05-03] MEDS: PHENYLEPHRINE 10% OPHTH (NEO-SYN) 5 ML BTL OU SCH ×3 (06:21→06:34)
[2019-05-03] MEDS: CYCLOPENTOLATE 1% (CYCLOGYL) 2 ML DROPS OP SCH ×3 (06:21→06:34)
[2019-05-03] MEDS ORDERED: MIDAZOLAM 2 MG/2 ML (VERSED) VIAL ONE (07:28)
--- NOTE | 2019-05-03 07:29 | Ophthalmologist Pre-Op Note ---
Pre-Operative Progress Note H&P Reviewed The H&P was reviewed, patient examined and no changes noted. Date H&P Reviewed: May 03, 2019 Time H&P Reviewed: 07:29 Pre-Op Dx Cataract, Right Eye DIEGO ORTEGA MD May 03, 2019 07:29
[2019-05-03] MEDS ORDERED: acetaZOLAMIDE ER 500 MG CAP (DIAMOX SEQUELS) PO ONE (07:30)
[2019-05-03] MEDS ORDERED: diphenhydrAMINE 50 MG/ML INJ (BENADRYL) ONE (07:39)
--- NOTE | 2019-05-03 07:56 | Ophthalmology Operative Report ---
Cataract removal/placement IOL PREOPERATIVE DIAGNOSIS: Cataract Right Eye POSTOPERATIVE DIAGNOSIS: Cataract Right Eye PROCEDURE: Cataract removal and placement of posterior chamber implant, right eye SURGEON: Tyler Ortega ANESTHESIA: Topical with sedation COMPLICATIONS: None ESTIMATED BLOOD LOSS: Minimal DESCRIPTION OF PROCEDURE: After proper informed consent was obtained, the patient, a 74 female, was taken to the Operating Room and the right eye was anesthetized with tetracaine. The right eye was then prepped and draped in the usual manner. A wire lid speculum was placed. A paracentesis was made at the left hand position. Preservative free lidocaine was injected into the anterior chamber followed by viscoelastic. A clear corneal incision was made in the temporal position. A capsulorrhexis was preformed and the central nuclear and cortical material were removed. The posterior capsule was polished and Momo 21.0 AU00T0 IOL was placed into the capsular bag. The residual viscoelastic was aspirated and balanced saline solution was injected into the anterior chamber. Moxifloxacin was injected into the anterior chamber. The wound was checked and found to be water tight. The patient tolerated the procedure well without complications. TYLER ORTEGA MD May 03, 2019 07:56
[2019-05-03 08:05] VITALS: BP 142/85
== END 2019-05-03 08:05 | disposition home or self-care (01) ==
LOC: SDC 05:54
PROVIDERS: ATTEND Specialist
DX: H25.11 Age-related nuclear cataract, right eye (principal); E78.5 Hyperlipidemia, unspecified; K21.9 Gastro-esophageal reflux disease without esophagitis; J44.9 Chronic obstructive pulmonary disease, unspecified; Z79.899 Other long term (current) drug therapy; Z90.710 Acquired absence of both cervix and uterus; Z88.5 Allergy status to narcotic agent; Z88.8 Allergy status to other drugs, medicaments and biological substances; Z91.048 Other nonmedicinal substance allergy status; Z91.041 Radiographic dye allergy status; Z83.3 Family history of diabetes mellitus; Z80.3 Family history of malignant neoplasm of breast

== ENCOUNTER 2019-05-10 06:05 | Day surgery (SDC) | payer MEDICARE, OTHER ==
[~2019-05-10] VITALS: Ht 160 cm; Wt 72.7 kg
[2019-05-10 06:14] VITALS: BP 129/99
[2019-05-10] MEDS ORDERED: MOXIFLOXACIN OPHTH SOLN 5 MG/ML 0.3 ML SYRINGE OP ONE (06:15)
[2019-05-10] MEDS ORDERED: LIDOCAINE PF 1% 2 ML VIAL IR PRN (06:15)
[2019-05-10] MEDS ORDERED: TIMOLOL MALEATE 0.5% 5 ML (TIMOPTIC) BTL OU PRN (06:15)
[2019-05-10] MEDS: TETRACAINE 0.5% OPHTH SOLN 4 ML BTL (SINGLE DOSE ONLY) OU PRN ×4 (06:16→06:37)
[2019-05-10] MEDS: CYCLOPENTOLATE 1% (CYCLOGYL) 2 ML DROPS OP SCH ×3 (06:21→06:37)
[2019-05-10] MEDS: PHENYLEPHRINE 10% OPHTH (NEO-SYN) 5 ML BTL OU SCH ×3 (06:21→06:37)
[2019-05-10] MEDS ORDERED: MIDAZOLAM 2 MG/2 ML (VERSED) VIAL ONE (06:46)
--- NOTE | 2019-05-10 06:57 | Ophthalmologist Pre-Op Note ---
Pre-Operative Progress Note H&P Reviewed The H&P was reviewed, patient examined and no changes noted. Date H&P Reviewed: May 10, 2019 Time H&P Reviewed: 06:57 Pre-Op Dx Secondary Cataract, Right Eye DIEGO ORTEGA MD May 10, 2019 06:57
--- NOTE | 2019-05-10 07:18 | Ophthalmologist Pre-Op Note ---
Pre-Operative Progress Note H&P Reviewed The H&P was reviewed, patient examined and no changes noted. Date H&P Reviewed: May 10, 2019 Time H&P Reviewed: 07:00 Pre-Op Dx Cataract, Left Eye DIEGO ORTEGA MD May 10, 2019 07:18
--- NOTE | 2019-05-10 07:19 | Ophthalmology Operative Report ---
Cataract removal/placement IOL PREOPERATIVE DIAGNOSIS: Cataract Left Eye POSTOPERATIVE DIAGNOSIS: Cataract Left Eye PROCEDURE: Cataract removal and placement of posterior chamber implant, left eye SURGEON: Tyler Ortega ANESTHESIA: Topical with sedation COMPLICATIONS: None ESTIMATED BLOOD LOSS: Minimal DESCRIPTION OF PROCEDURE: After proper informed consent was obtained, the patient, a 74 female, was taken to the Operating Room and the left eye was anesthetized with tetracaine. The left eye was then prepped and draped in the usual manner. A wire lid speculum was placed. A paracentesis was made at the left hand position. Preservative free lidocaine was injected into the anterior chamber followed by viscoelastic. A clear corneal incision was made in the temporal position. A capsulorrhexis was preformed and the central nuclear and cortical material were removed. The posterior capsule was polished and an Momo 22.5 AU00T0 was placed into the capsular bag. The residual viscoelastic was aspirated and balanced saline solution was injected into the anterior chamber. Moxifloxacin was injected into the anterior chamber. The wound was checked and found to be water tight. The patient tolerated the procedure well without complications. TYLER ORTEGA MD May 10, 2019 07:19
[2019-05-10 07:26] VITALS: BP 131/77
[2019-05-10] MEDS ORDERED: acetaZOLAMIDE ER 500 MG CAP (DIAMOX SEQUELS) PO ONE (07:30)
--- NOTE | 2019-05-10 11:28 | Anesthesia-General Post-Op ---
MAC Patient Condition Mental Status/LOC: Same as Preop Cardiovascular: Satisfactory Nausea/Vomiting: Absent Respiratory: Satisfactory Pain: Controlled Complications: Absent Post Op Complications Complications None Follow Up Care/Instructions Patient Instructions None needed. Anesthesiology Discharge Order Discharge Order Patient was seen this morning after the procedure and she was doing well, no complaints, stable vital signs, no apparent adverse anesthesia problems. DANTE HARVEY DO May 10, 2019 11:28
== END 2019-05-10 07:25 | disposition home or self-care (01) ==
LOC: SDC 06:05
PROVIDERS: ATTEND Specialist
DX: H25.12 Age-related nuclear cataract, left eye (principal); J44.9 Chronic obstructive pulmonary disease, unspecified; K21.9 Gastro-esophageal reflux disease without esophagitis; E78.5 Hyperlipidemia, unspecified; Z79.899 Other long term (current) drug therapy; Z90.710 Acquired absence of both cervix and uterus; Z85.3 Personal history of malignant neoplasm of breast; Z90.49 Acquired absence of other specified parts of digestive tract; Z91.041 Radiographic dye allergy status; Z88.8 Allergy status to other drugs, medicaments and biological substances; Z91.010 Allergy to peanuts; Z83.3 Family history of diabetes mellitus

== ENCOUNTER → 2020-02-13 | Outpatient (CLI) | payer MEDICARE, OTHER ==
[~2020-02-13] MED LIST changes: -CETI10TA21 PO; +CETI10TA49 PO; -PROM118S4 PO; +PROM118S5 PO
== END ==
LOC: LABNPT 07:06
PROVIDERS: ATTEND Family Medicine
DX: Z11.59 Encounter for screening for other viral diseases (principal)

== ENCOUNTER → 2020-04-21 | Outpatient (CLI) | payer MEDICARE, OTHER ==
--- NOTE | 2020-04-21 10:01 | Diagnostic Imaging Report ---
INDICATION: COUGH COMPARISON: 02/03/2015 FINDINGS: Frontal and lateral views of the chest demonstrate normal heart size and pulmonary vascularity. The lungs are clear. There are no signs of infiltrate, pleural effusions or pneumothoraces. The visualized osseous structures show no acute abnormalities. Moderate hiatal hernia is noted. IMPRESSION: 1. No acute process. No signs of infiltrates, effusions or pneumothoraces. Dictated by: Dictated on workstation # [id number]
== END ==
LOC: RAD 09:13
PROVIDERS: ATTEND Nurse Practitioner Family
DX: R05 Cough (principal)
CPT/HCPCS: 71046

== ENCOUNTER → 2020-04-21 | Outpatient (CLI) | payer MEDICARE, OTHER ==
[~2020-04-21] MED LIST changes: +DENOSUMAB 60 MG/1 ML (PROLIA) CANCER CTR SQ SCH; -LISI10TA2 PO; +LISI10TA25 PO
[2020-04-21 14:00] LABS: MEAN CORPUSCULAR HGB CONC 33 g/dL (32-36)
[2020-04-21 14:01] LABS: BASOPHILS # (AUTO) 0.1 10^3/uL (0.0-0.1); BASOPHILS % (AUTO) 1 % (0-10); EOSINOPHILS # (AUTO) 0.3 10^3/uL (0.0-0.3); EOSINOPHILS % (AUTO) 4 % (0-10); HEMATOCRIT 42 % (35-52); HEMOGLOBIN 13.9 g/dL (11.5-16.0); LYMPHOCYTES # (AUTO) 1.8 10^3/uL (1.0-4.0); LYMPHOCYTES % (AUTO) 23 % (12-44); MEAN CORPUSCULAR HEMOGLOBIN 28 pg (25-34); MEAN CORPUSCULAR VOLUME 86 fL (80-99); MEAN PLATELET VOLUME 13.2 fL (9.0-12.2); MONOCYTES # (AUTO) 0.7 10^3/uL (0.0-1.0); MONOCYTES % (AUTO) 9 % (0-12); NEUTROPHILS # (AUTO) 4.8 10^3/uL (1.8-7.8); NEUTROPHILS % (AUTO) 63 % (42-75); PLATELET COUNT 201 10^3/uL (130-400); WHITE BLOOD COUNT 7.7 10^3/uL (4.3-11.0)
[2020-04-21 14:27] LABS: ALANINE AMINOTRANSFERASE 18 U/L (0-55); ALBUMIN 3.5 GM/DL (3.2-4.5); ALKALINE PHOSPHATASE 67 U/L (40-136); BILIRUBIN,TOTAL 0.3 MG/DL (0.1-1.0); BUN/CREATININE RATIO 22; CALCIUM 9.3 MG/DL (8.5-10.1); CARBON DIOXIDE 25 MMOL/L (21-32); CHLORIDE 104 MMOL/L (98-107); CREATININE SERUM 0.86 MG/DL (0.60-1.30); GFR ESTIMATED > 60; GLUCOSE 106 MG/DL (70-105); POTASSIUM 4.1 MMOL/L (3.6-5.0); SODIUM 137 MMOL/L (135-145); TOTAL PROTEIN 6.4 GM/DL (6.4-8.2)
== END ==
LOC: ONC 13:51
PROVIDERS: ATTEND Internal Medicine Hematology & Oncology
DX: C50.412 Malignant neoplasm of upper-outer quadrant of left female breast (principal); M89.9 Disorder of bone, unspecified; I89.0 Lymphedema, not elsewhere classified; Z92.21 Personal history of antineoplastic chemotherapy; Z79.811 Long term (current) use of aromatase inhibitors; Z92.3 Personal history of irradiation; M85.88 Other specified disorders of bone density and structure, other site
CPT/HCPCS: 80053; 85025; 96372; G0463

== ENCOUNTER → 2020-09-15 | Outpatient (CLI) | payer MEDICARE, OTHER ==
[~2020-09-15] MED LIST changes: -DENOSUMAB 60 MG/1 ML (PROLIA) CANCER CTR SQ SCH
--- NOTE | 2020-09-15 14:06 | Diagnostic Imaging Report ---
INDICATION: Postmenopausal state, long-term aromatase inhibitor use. COMPARISON: September 11, 2018. FINDINGS: AP Spine L1-L4: [BMD (g/cm2): 0.971] [T-Score: -1.9] [Z-Score: -0.6] [BMD Previous: 0.947] [BMD % Change: 2.5] LT Hip Neck: [BMD (g/cm2): 0.802] [T-Score: -1.7] [Z-Score: -0.1] LT Hip Total: [BMD (g/cm2):0.894] [T-Score:-0.9] [Z-Score: 0.4] [BMD Previous: 0.895] [BMD % Change: -0.1] RT Hip Neck: [BMD (g/cm2):0.881] [T-Score:-1.1] [Z-Score:0.4] RT Hip Total: [BMD (g/cm2):0.904] [T-score:-0.8] [Z-Score:0.5] [BMD Previous:0.863] [BMD % Change:4.8] *Indicates significant change from prior examination based on 95% confidence level. World Health Organization criteria for BMD interpretation classify patients as Normal (T-score at or above -1.0), Osteopenic (T-score between -1.0 and -2.5) or Osteoporotic (T-score at or below -2.5). LIMITATIONS AND MODIFICATION: None. FRACTURE RISK (FRAX SCORE): The ten year probability of (%): Major Osteoporotic Fracture: [11.2] Hip Fracture: [2.2] IMPRESSION: 1. Osteopenia (Low bone mass). 2. No significant change in bone mineral density since prior examination. 3. See below National Osteoporosis Foundation guidelines on when to potentially initiate pharmacologic therapy. Based on the National Osteoporosis Foundation Guidelines, pharmacologic treatment should be initiated in any of the following, unless clinical conditions suggest otherwise: * Any patient with prior fragility fracture of the hip or vertebrae. A spine fracture indicates 5X risk for subsequent spine fracture and 2X risk for subsequent hip fracture. * Osteoporosis (T-score <-2.5). * Postmenopausal women and men age 50 and older with low bone mass/osteopenia (T-score between -1.0 and -2.5) by DXA and 10-year major osteoporotic fracture greater than 20% or a 10-year probability of hip fracture greater than 3%. These fracture risks are supplied above in the FRAX score, if applicable. * Clinician judgement and/or patient preferences may indicate treatment for people with 10-year fracture probabilities above or below these levels. Dictated by: Dictated on workstation # [id number]
== END ==
LOC: RAD 10:30
PROVIDERS: ATTEND Nurse Practitioner Adult Health
DX: M85.80 Other specified disorders of bone density and structure, unspecified site (principal); Z79.811 Long term (current) use of aromatase inhibitors; Z78.0 Asymptomatic menopausal state
CPT/HCPCS: 77080

== ENCOUNTER → 2020-10-27 | Outpatient (CLI) | payer MEDICARE, OTHER ==
[~2020-10-27] MED LIST changes: +DENOSUMAB 60 MG/1 ML (PROLIA) CANCER CTR SQ SCH
[2020-10-27 14:29] LABS: MEAN CORPUSCULAR VOLUME 85 fL (80-99); NEUTROPHILS % (AUTO) 75 % (42-75)
[2020-10-27 14:31] LABS: BASOPHILS # (AUTO) 0.1 10^3/uL (0.0-0.1); BASOPHILS % (AUTO) 1 % (0-10); EOSINOPHILS # (AUTO) 0.2 10^3/uL (0.0-0.3); EOSINOPHILS % (AUTO) 3 % (0-10); HEMATOCRIT 43 % (35-52); HEMOGLOBIN 14.1 g/dL (11.5-16.0); LYMPHOCYTES # (AUTO) 1.1 10^3/uL (1.0-4.0); LYMPHOCYTES % (AUTO) 16 % (12-44); MEAN CORPUSCULAR HEMOGLOBIN 28 pg (25-34); MEAN CORPUSCULAR HGB CONC 33 g/dL (32-36); MEAN PLATELET VOLUME 13.2 fL (9.0-12.2); MONOCYTES # (AUTO) 0.4 10^3/uL (0.0-1.0); MONOCYTES % (AUTO) 5 % (0-12); NEUTROPHILS # (AUTO) 5.2 10^3/uL (1.8-7.8); PLATELET COUNT 181 10^3/uL (130-400); WHITE BLOOD COUNT 6.9 10^3/uL (4.3-11.0)
[2020-10-27 14:45] LABS: ALBUMIN 3.7 GM/DL (3.2-4.5); BILIRUBIN,TOTAL 0.4 MG/DL (0.1-1.0); CALCIUM 10.2 MG/DL (8.5-10.1); CREATININE SERUM 1.1 MG/DL (0.60-1.30); POTASSIUM 4.3 MMOL/L (3.6-5.0); TOTAL PROTEIN 6.8 GM/DL (6.4-8.2)
== END ==
LOC: ONC 14:15
PROVIDERS: ATTEND Internal Medicine Hematology & Oncology
DX: C50.412 Malignant neoplasm of upper-outer quadrant of left female breast (principal); M85.88 Other specified disorders of bone density and structure, other site; I89.0 Lymphedema, not elsewhere classified; J30.9 Allergic rhinitis, unspecified; E55.9 Vitamin D deficiency, unspecified; J44.9 Chronic obstructive pulmonary disease, unspecified; I10 Essential (primary) hypertension; E78.5 Hyperlipidemia, unspecified; D50.9 Iron deficiency anemia, unspecified; Z79.811 Long term (current) use of aromatase inhibitors; Z90.12 Acquired absence of left breast and nipple; Z98.890 Other specified postprocedural states; Z92.21 Personal history of antineoplastic chemotherapy; Z92.3 Personal history of irradiation; Z78.0 Asymptomatic menopausal state
CPT/HCPCS: 80053; 82306; 85025; 96372; G0463

== ENCOUNTER 2021-01-27 10:06 | Emergency (ER) | payer MEDICARE, OTHER ==
[~2021-01-27] VITALS: Ht 157 cm; Wt 79.0 kg
[~2021-01-27 10:06] MED LIST changes: -DENOSUMAB 60 MG/1 ML (PROLIA) CANCER CTR SQ SCH
[2021-01-27] MEDS ORDERED: RT-ALBUTEROL/IPRATROPIUM 3 ML (DUONEB) VIAL INH ONE (10:30)
[2021-01-27] MEDS ORDERED: NS IV 1000 ML 1,000 ML IV SCH (10:30)
[2021-01-27] MEDS ORDERED: AZITHROMYCIN INJECTION 500 MG in NS (IVPB) 250 ML IV ONE (10:30)
[2021-01-27] MEDS ORDERED: cefTRIAXone 1 GM PRE-MIX 50 ML IV ONE (10:30)
--- NOTE | 2021-01-27 10:33 | ED Respiratory ---
General Chief Complaint: Cough/Cold/Flu Symptoms Stated Complaint: SOB, COUGH Nursing Triage Note: ARRIVED VIA AMB TO ROOM 10. COMPLAINS OF COUGH, LOW GRADE FEVER, AND LUNG PAIN STARTING THIS PAST WEEKEND. Source: patient Exam Limitations: no limitations History of Present Illness Date Seen by Provider: Jan 27, 2021 Time Seen by Provider: 10:11 Initial Comments Patient to the ER by private conveyance from home with chief complaint of cough, shortness of air, weakness, exertional dyspnea since Monday, 3 days ago. She has had 3 doses of COVID-19 vaccination. She has had T-max of 99.5. She has a sometimes productive cough. She thinks she has bronchitis or pneumonia. She has a history of COPD with no dependence on supplemental oxygen or CPAP. She feels very wheezy has not taken any breathing treatments. No nausea chest pain abdominal pain. No swelling in the hands or feet. Allergies and Home Medications Allergies Coded Allergies: Iodinated Contrast Media (Unverified Allergy, Severe, HIVES, 11/11/16) codeine (Unverified Allergy, Intermediate, RASH, CAN TAKE PERCOCET, 11/11/16) paroxetine (Verified Allergy, Intermediate, RASH, 11/11/16) paclitaxel (Verified Allergy, Unknown, 04/29/19) povidone-iodine (Unverified Allergy, Unknown, rash, 11/11/16) soap (Unverified Allergy, Unknown, rash, 11/11/16) Patient Home Medication List Home Medication List Reviewed: Yes Anastrozole (Anastrozole) 1 Mg Tablet, 1 MG PO DAILY, (Reported) Entered as Reported by: KYUNG KOHLER on 11/11/16 0915 Azithromycin (Azithromycin) 250 Mg Tablet, 250 MG PO DAILY Prescribed by: ARIELA PIPER on 01/27/21 1140 Calcium Carbonate/Vitamin D3 (Caltrate 600 + D Soft Chew Tab) 1 Each Tab.chew, 1 EACH PO BID, (Reported) Entered as Reported by: DENNISE SHIELDS on 04/29/19 1246 Cetirizine HCl (Zyrtec) 10 Mg Tablet, 10 MG PO DAILY, (Reported) Entered as Reported by: KYUNG KOHLER on 11/11/16 0915 Ergocalciferol (Vitamin D2) (Vitamin D2) Unknown Strength Tablet, 1 TAB PO BID, (Reported) Entered as Reported by: DENNISE SHIELDS on 04/29/19 1246 Fluticasone Propionate (Flovent Hfa 110 mcg) 1 Ea Aero, 2 PUFF IH DAILY Prescribed by: ARIELA PIPER on 01/27/21 1145 Ipratropium/Albuterol Sulfate (Iprat-Albut 0.5-3(2.5) mg/3 ml) 3 Ml Ampul.neb, 3 ML IH Q6H PRN for SHORTNESS OF BREATH Prescribed by: ARIELA PIPER on 01/27/21 1140 Nebulizer and Compressor (Compressor Nebulizer System) 1 Each Each, EACH MC DAILY PRN PRN for WHEEZING, (DME) Prescribed by: ARIELA PIPER on 01/27/21 1142 Omeprazole (Omeprazole) 20 Mg Capsule.dr, 20 MG PO DAILY, (Reported) Entered as Reported by: DENNISE SHIELDS on 04/29/19 1246 Prednisone (Prednisone) 20 Mg Tab, 40 MG PO DAILY Prescribed by: ARIELA PIPER on 01/27/21 1140 Rosuvastatin Calcium (Rosuvastatin Calcium) 10 Mg Tablet, 10 MG PO HS, (Reported) Entered as Reported by: DENNISE SHIELDS on 04/29/19 1246 Review of Systems Review of Systems Constitutional: No chills, No diaphoresis EENTM: No ear discharge, No ear pain Respiratory: cough, phlegm, short of breath Cardiovascular: No chest pain, No edema Gastrointestinal: No abdominal pain, No nausea Genitourinary: No discharge, No dysuria Musculoskeletal: No back pain, No joint pain All Other Systems Reviewed Negative Unless Noted: Yes Past Rbrpqus-Bciunh-Uodctq Hx Patient Social History Tobacco Use?: No Substance use?: No Alcohol Use?: No Immunizations Up To Date Tetanus Booster (TDap): Less than 5yrs COVID19 Vaccine 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 Seasonal Allergies Seasonal Allergies: Yes Past Medical History Surgeries: Yes (BILAT MASTECOTOMY, ) Breast, Ear Surgery, Hysterectomy Respiratory: No Chronic Bronchitis, COPD Currently Using CPAP: No Currently Using BIPAP: No Cardiac: Yes High Cholesterol, Hypertension Neurological: No Reproductive Disorders: No Female Reproductive Disorders: Denies Sexually Transmitted Disease: No HIV/AIDS: No Genitourinary: No Gastrointestinal: No Gastroesophageal Reflux Musculoskeletal: No Endocrine: No HEENT: No Loss of Vision: Bilateral Hearing Impairment: Hard of Hearing Cancer: Yes Breast Did You Recieve Any Treatments: Yes What Type of Treatment Did You: Chemotherapy, Radiation, Surgical Intervention Psychosocial: No Integumentary: No Blood Disorders: No Adverse Reaction/Blood Tranf: No Family Medical History Cardiovascular disease 19 FATHER 19 MOTHER Coronary thrombosis 19 MOTHER Diabetes mellitus 19 FATHER FH: breast cancer 19 MOTHER Physical Exam Vital Signs - First Documented 01/27/21 01/27/21 10:10 10:51 Temp 36.9 Pulse 111 Resp 18 B/P (MAP) 156/101 (119) Pulse Ox 93 O2 Delivery Room Air O2 Flow Rate 2.00 Capillary Refill : Less Than 3 Seconds Height: 5'2.00" Weight: 155lbs. 0.0oz. 70.519720kf; 32.00 BMI Method:Stated General Appearance: WD/WN, moderate distress Eyes: Bilateral Eye Normal Inspection, Bilateral Eye PERRL, Bilateral Eye EOMI HEENT: PERRL/EOMI, normal ENT inspection, pharynx normal Neck: non-tender, supple, normal inspection Respiratory: chest non-tender, respiratory distress (Mild to moderate with oxygen saturations 89 to 92% at rest. 26 breaths/min.), accessory muscle use (Mild), wheezing (Extensive wheezing all lung xiao) Cardiovascular: normal peripheral pulses, regular rate, rhythm, no edema, tachycardia (110) Gastrointestinal: non tender, soft Extremities: non-tender, normal inspection, normal capillary refill Neurologic/Psychiatric: alert, normal mood/affect, oriented x 3 Skin: normal color, warm/dry Focused Exam Lactate Level 01/27/21 10:25: Lactic Acid Level 0.82 Lactic Acid Level Laboratory Tests Test 01/27/21 10:25 Lactic Acid Level 0.82 MMOL/L (0.50-2.00) Procedures/Interventions Suture Size: 4-0 Progress/Results/Core Measures Suspected Sepsis SIRS Temperature: Pulse: 111 Respiratory Rate: 18 Laboratory Tests 01/27/21 10:25: White Blood Count 6.8 Blood Pressure 156 /101 Mean: 119 01/27/21 10:25: Lactic Acid Level 0.82 Laboratory Tests 01/27/21 10:25: Creatinine 0.92, INR Comment 1.0, Platelet Count 168, Total Bilirubin 0.6 Results/Orders Lab Results Laboratory Tests Test 01/27/21 10:18 01/27/21 10:25 01/27/21 10:45 Range/Units Influenza Type A (RT-PCR) Not Detected Not Detecte Influenza Type B (RT-PCR) Not Detected Not Detecte SARS-CoV-2 RNA (RT-PCR) Not Detected Not Detecte White Blood Count 6.8 4.3-11.0 10^3/uL Red Blood Count 5.07 3.80-5.11 10^6/uL Hemoglobin 14.3 11.5-16.0 g/dL Hematocrit 43 35-52 % Mean Corpuscular Volume 84 80-99 fL Mean Corpuscular Hemoglobin 28 25-34 pg Mean Corpuscular Hemoglobin Concent 33 32-36 g/dL Red Cell Distribution Width 13.9 10.0-14.5 % Platelet Count 168 130-400 10^3/uL Mean Platelet Volume 12.9 H 9.0-12.2 fL Immature Granulocyte % (Auto) 0 % Neutrophils (%) (Auto) 72 42-75 % Lymphocytes (%) (Auto) 15 12-44 % Monocytes (%) (Auto) 8 0-12 % Eosinophils (%) (Auto) 5 0-10 % Basophils (%) (Auto) 1 0-10 % Neutrophils # (Auto) 4.9 1.8-7.8 10^3/uL Lymphocytes # (Auto) 1.0 1.0-4.0 10^3/uL Monocytes # (Auto) 0.5 0.0-1.0 10^3/uL Eosinophils # (Auto) 0.3 0.0-0.3 10^3/uL Basophils # (Auto) 0.0 0.0-0.1 10^3/uL Immature Granulocyte # (Auto) 0.0 0.0-0.1 10^3/uL Percent Immature Platelet Fraction 16.0 H 0.0-7.6 % Prothrombin Time 13.8 12.2-14.7 SEC INR Comment 1.0 0.8-1.4 Activated Partial Thromboplast Time 32 24-35 SEC D-Dimer 1.10 H 0.00-0.49 UG/ML Sodium Level 137 135-145 MMOL/L Potassium Level 4.4 3.6-5.0 MMOL/L Chloride Level 103 98-107 MMOL/L Carbon Dioxide Level 21 21-32 MMOL/L Anion Gap 13 5-14 MMOL/L Blood Urea Nitrogen 17 7-18 MG/DL Creatinine 0.92 0.60-1.30 MG/DL Estimat Glomerular Filtration Rate 60 BUN/Creatinine Ratio 18 Glucose Level 106 H 70-105 MG/DL Lactic Acid Level 0.82 0.50-2.00 MMOL/L Calcium Level 9.4 8.5-10.1 MG/DL Corrected Calcium 9.5 8.5-10.1 MG/DL Total Bilirubin 0.6 0.1-1.0 MG/DL Aspartate Amino Transf (AST/SGOT) 22 5-34 U/L Alanine Aminotransferase (ALT/SGPT) 21 0-55 U/L Alkaline Phosphatase 63 40-136 U/L C-Reactive Protein High Sensitivity 0.70 H 0.00-0.50 MG/DL Total Protein 7.0 6.4-8.2 GM/DL Albumin 3.9 3.2-4.5 GM/DL Procalcitonin 0.04 <0.10 NG/ML Blood Gas Puncture Site LEFT RADIAL Blood Gas Patient Temperature 36.9 Arterial Blood pH 7.40 7.37-7.43 Arterial Blood Partial Pressure CO2 35 35-45 MMHG Arterial Blood Partial Pressure O2 78 L 79-93 MMHG Arterial Blood HCO3 22 L 23-27 MMOL/L Arterial Blood Total CO2 22.8 21.0-31.0 MMOL/L Arterial Blood Oxygen Saturation 96 94-100 % Arterial Blood Base Excess -2.3 -2.5-2.5 MMOL/L Umer Test YES-POS Blood Gas Ventilator Setting NO Blood Gas Inspired Oxygen ROOM AIR My Orders Orders - ARIELA PIPER Arterial Blood Gas (01/27/21 10:24) Albuterol/Ipra Inhalation Soln (Duoneb I (01/27/21 10:30) Chest 1 View, Ap/Pa Only (01/27/21 10:25) Cbc With Automated Diff (01/27/21 10:25) Comprehensive Metabolic Panel (01/27/21 10:25) Blood Culture (01/27/21 10:25) Sputum Culture (01/27/21 10:25) Urinalysis (01/27/21 10:25) Urine Culture (01/27/21 10:25) Protime With Inr (01/27/21 10:25) Partial Thromboplastin Time (01/27/21 10:25) Ed Iv/Invasive Line Start (01/27/21 10:25) Ed Iv/Invasive Line Start (01/27/21 10:25) Vital Signs Adult Sepsis Patie Q15M (01/27/21 10:25) O2 (01/27/21 10:25) Remove Rings In Anticipation O (01/27/21 10:25) Lactic Acid Analyzer (01/27/21 10:25) Influenza A And B By Pcr (01/27/21 10:25) Ns Iv 1000 Ml (Sodium Chloride 0.9%) (01/27/21 10:30) Ceftriaxone 1 Gm Pre-Mix (Rocephin 1 Gm (01/27/21 10:30) Azithromycin Injection (Zithromax Inject (01/27/21 10:30) Svn Small Volume Nebulizer (01/27/21 10:25) Covid 19 Inhouse Test (01/27/21 10:25) Hs C Reactive Protein (01/27/21 10:27) Procalcitonin (Pct) (01/27/21 10:27) Fibrin Degradation Products (01/27/21 10:27) Methylprednisolone Sod Succ (Solu-Medrol (01/27/21 11:45) Medications Given in ED Current Medications Medications Dose Ordered Sig/Sulma Route Start Time Stop Time Status Last Admin Dose Admin Albuterol/ Ipratropium 3 ml ONCE ONCE INH 01/27/21 10:30 01/27/21 10:31 DC 01/27/21 11:17 3 ML Azithromycin 500 mg/Sodium Chloride 255 ml @ 250 mls/hr ONCE ONCE IV 01/27/21 10:30 01/27/21 11:31 DC 01/27/21 11:30 250 MLS/HR Ceftriaxone Sodium/Dextrose 50 ml @ 100 mls/hr ONCE ONCE IV 01/27/21 10:30 01/27/21 10:59 DC 01/27/21 11:01 100 MLS/HR Vital Signs/I&O 01/27/21 01/27/21 01/27/21 10:10 10:51 11:18 Temp 36.9 Pulse 111 Resp 18 B/P (MAP) 156/101 (119) Pulse Ox 93 100 O2 Delivery Room Air Nasal Cannula Nasal Cannula O2 Flow Rate 2.00 2.00 Capillary Refill : Less Than 3 Seconds Blood Pressure Mean: 119 Progress Note #1: Time: 10:33 Progress Note Subjective history of fever, tachycardia, tachypnea she meets sepsis criteria. Suspect pneumonia versus COPD exacerbation versus bronchitis versus atypical pneumonia. Swabbing her for Covid and influenza getting a chest x-ray septic work-up. We will start with just 1 L of fluids. 20 mL/kg would be about 1500 cc but it is known that COVID-19 is better treated without copious amounts of IV fluids. After her Covid swab comes back we will dose her with albuterol and ipratropium either by small-volume nebulizer or MDI respectively. ABG Progress Note #2: Time: 11:32 Progress Note Patient is now 100% on 2 L so we turn the oxygen off. She still has wheezing an d so we will give her 125 mg Solu-Medrol IV let her get her azithromycin and rest for a while off the oxygen. We did offer her stay in the hospital but she would prefer to go home. This appears to be bronchitis based on labs and chest x-ray. We will put her on prednisone and azithromycin and have her follow-up early next week with Dr. James. We encouraged her to discuss an inhaled corticosteroid since she claims she gets 4 episodes of bronchitis a year. We will also provide her with a prescription for nebulizer Diagnostic Imaging Diagonstic Imaging: Xray Plain Films/CT/US/NM/MRI: chest Comments NAME: PETRONA LEE [facility] REC#: [id number] PT STATUS: REG ER : 1945 PHYSICIAN: ARIELA PIPER MD ADMIT DATE: 01/27/21/ER Draft Date of Exam:01/27/21 CHEST 1 VIEW, AP/PA ONLY INDICATION: Shortness of breath, wheezing, and cough. Comparison made with prior examination from 09/04/2013. FINDINGS: The heart size is normal. There is a hiatal hernia. Lungs are clear. There is no pleural effusion or pneumothorax. Mediastinum is unremarkable. IMPRESSION: No acute cardiopulmonary abnormality. Hiatal hernia. Dictated on workstation # [id number] Dict: 01/27/21 1121 Trans: 01/27/21 [id number] Interpreted by: CAESAR MACHADO MD Electronically signed by: Reviewed: Reviewed by Me Departure Impression Primary Impression: Bronchitis Additional Impression: COPD with exacerbation Disposition: 01 HOME, SELF-CARE Condition: Stable Departure-Patient Inst. Decision time for Depature: 11:36 Referrals: ANITA JAMES MD (PCP/Family) Primary Care Physician Patient Instructions: Inhaled Corticosteroid Medicines, Acute Bronchitis, Adult (DC), COPD Exacerbation, Adult ED Add. Discharge Instructions: Plan to follow-up in the next 1 week with primary care provider for recheck. Prednisone 2 tablets daily starting tomorrow for 5 days. Azithromycin 1 tablet daily starting tomorrow for 4 days. Fluticasone take 2 puffs daily for prevention of bronchitis. This is an inhaled steroid that you can use to help prevent future cases of bronchitis/COPD exacerbation. DuoNeb through your nebulizer every 6 hours on a scheduled basis for the next week until your shortness of breath improves. You may use it once in between if you need to for coughing fits, wheezing or shortness of air. Drink plenty of fluids. Return to the ER promptly if you are having worsening shortness of air. All discharge instructions reviewed with patient and/or family. Voiced understanding. Scripts Fluticasone Propionate (Flovent Hfa 110 mcg) 1 Ea Aero 2 PUFF IH DAILY for 30 Days, #1 EA 0 Refills Prov: ARIELA PIPER 01/27/21 Nebulizer and Compressor (Compressor Nebulizer System) 1 Each Each EACH MC DAILY PRN PRN for WHEEZING, #1 0 Refills Prov: AREILA PIPER 01/27/21 Ipratropium/Albuterol Sulfate (Iprat-Albut 0.5-3(2.5) mg/3 ml) 3 Ml Ampul.neb 3 ML IH Q6H PRN for SHORTNESS OF BREATH for 14 Days, #60 EACH 0 Refills Prov: ARIELA PIPER 01/27/21 Azithromycin (Azithromycin) 250 Mg Tablet 250 MG PO DAILY, #4 TAB 0 Refills Prov: ARIELA PIPER 01/27/21 Prednisone (Prednisone) 20 Mg Tab 40 MG PO DAILY for 5 Days, #10 TAB 0 Refills Prov: ARIELA PIPER 01/27/21 Copy Copies To 1: ANITA JAMES MD, TITUS J Jan 27, 2021 10:33
[2021-01-27 10:43] LABS: MEAN CORPUSCULAR VOLUME 84 fL (80-99)
[2021-01-27 10:45] LABS: BASOPHILS % (AUTO) 1 % (0-10); EOSINOPHILS # (AUTO) 0.3 10^3/uL (0.0-0.3); EOSINOPHILS % (AUTO) 5 % (0-10); HEMATOCRIT 43 % (35-52); HEMOGLOBIN 14.3 g/dL (11.5-16.0); LYMPHOCYTES % (AUTO) 15 % (12-44); MEAN CORPUSCULAR HEMOGLOBIN 28 pg (25-34); MEAN CORPUSCULAR HGB CONC 33 g/dL (32-36); MEAN PLATELET VOLUME 12.9 fL (9.0-12.2); MONOCYTES # (AUTO) 0.5 10^3/uL (0.0-1.0); MONOCYTES % (AUTO) 8 % (0-12); NEUTROPHILS # (AUTO) 4.9 10^3/uL (1.8-7.8); NEUTROPHILS % (AUTO) 72 % (42-75); PLATELET COUNT 168 10^3/uL (130-400); WHITE BLOOD COUNT 6.8 10^3/uL (4.3-11.0)
[2021-01-27 10:52] LABS: ALBUMIN 3.9 GM/DL (3.2-4.5); POTASSIUM 4.4 MMOL/L (3.6-5.0)
[2021-01-27 10:53] LABS: CALCIUM 9.4 MG/DL (8.5-10.1)
[2021-01-27 10:55] LABS: ABG BASE EXCESS -2.3 MMOL/L (-2.5-2.5); ABG OXYGEN SATURATION 96 % (94-100); ABG PCO2 35 MMHG (35-45); ABG PO2 78 MMHG (79-93); ABG TCO2 22.8 MMOL/L (21.0-31.0); ALLENS TEST YES-POS; INSPIRED O2 ROOM AIR; PATIENT TEMP 36.9; VENTILATOR NO
[2021-01-27 10:56] LABS: BILIRUBIN,TOTAL 0.6 MG/DL (0.1-1.0)
[2021-01-27 10:58] LABS: CREATININE SERUM 0.92 MG/DL (0.60-1.30)
[2021-01-27 10:59] LABS: FIBRIN DEGRADATION PRODUCTS 1.1 UG/ML (0.00-0.49); PROTHROMBIN TIME PATIENT 13.8 SEC (12.2-14.7)
--- NOTE | 2021-01-27 11:24 | Diagnostic Imaging Report ---
INDICATION: Shortness of breath, wheezing, and cough. Comparison made with prior examination from 09/04/2013. FINDINGS: The heart size is normal. There is a hiatal hernia. Lungs are clear. There is no pleural effusion or pneumothorax. Mediastinum is unremarkable. IMPRESSION: No acute cardiopulmonary abnormality. Hiatal hernia. Dictated by: Dictated on workstation # [id number]
[2021-01-27] MEDS ORDERED: IPRA3AMP31 IH (11:40)
[2021-01-27] MEDS ORDERED: AZIT250T12 PO (11:40)
[2021-01-27] MEDS ORDERED: PRD20T PO (11:40)
[2021-01-27] MEDS ORDERED: NEBU-186 MC (11:42)
[2021-01-27] MEDS ORDERED: methylPREDNISolone 125 MG (Solu-MEDROL) VIAL IVP ONE (11:45)
[2021-01-27] MEDS ORDERED: FLT11013 IH (11:45)
[2021-01-27 12:35] VITALS: BP 151/89
== END 2021-01-27 12:35 | disposition home or self-care (01) ==
LOC: EDUNIT# 10:06 → ER 10:09
DX: J44.1 Chronic obstructive pulmonary disease with (acute) exacerbation (principal); R00.0 Tachycardia, unspecified; I10 Essential (primary) hypertension; E78.00 Pure hypercholesterolemia, unspecified; K21.9 Gastro-esophageal reflux disease without esophagitis; Z20.822 Contact with and (suspected) exposure to COVID-19; Z79.899 Other long term (current) drug therapy
CPT/HCPCS: 36415; 71045; 80053; 82805; 83605; 84145; 85025; 85379; 85610; 85730; 86141; 87040; 87077; 87186; 87636; 94640

== ENCOUNTER → 2022-04-19 | Outpatient (CLI) | payer MEDICARE, OTHER ==
[~2022-04-19] MED LIST changes: +ALBU8.5H6 IH; +AZIT250T12 PO; +FLT11013 IH; +IPRA3AMP31 IH; +NEBU-186 MC; +PRD20T PO; -RT-ALBUINH IH
--- NOTE | 2022-04-19 17:25 | Diagnostic Imaging Report ---
INDICATION: Fall, arm pain. COMPARISON: None available. TECHNIQUE: 2 radiographs of the right humerus dated 04/19/2022. FINDINGS: Surgical clips are noted overlying the right axillary region. Mild degenerative changes involving the acromioclavicular joint. No acute fracture. No dislocation. No destructive osseous process. No suspicious radiopaque foreign body. IMPRESSION: No acute osseous abnormality with mild degenerative changes present. Dictated by: Dictated on workstation # [id number]
== END ==
LOC: RAD 11:04
PROVIDERS: ATTEND Nurse Practitioner Family
DX: M19.011 Primary osteoarthritis, right shoulder (principal)
CPT/HCPCS: 73060

== ENCOUNTER 2022-07-30 07:07 | Emergency (ER) | payer MEDICARE, OTHER ==
[~2022-07-30] VITALS: Ht 157 cm; Wt 78.0 kg
[2022-07-30 07:10] VITALS: BP 136/79
[2022-07-30] MEDS ORDERED: RX-ALBUTEROL INHALER 8.5 GM HFA (PROAIR) IH ONE (08:06)
[2022-07-30] MEDS ORDERED: AZIT250T12 PO (08:07)
[2022-07-30] MEDS ORDERED: PRD20T PO (08:07)
[2022-07-30] MEDS ORDERED: ALBU2.5V4 INH (08:07)
--- NOTE | 2022-07-30 08:07 | ED General ---
General Chief Complaint: Cough/Cold/Flu Symptoms Stated Complaint: BRONCHITIS Nursing Triage Note: ARRIVED VIA AMB TO ROOM 03. STATES SHE THINKS SHE HAS BRONCHITIS. WHEEZING AND COUGHING STARTED THREE DAYS AGO AFTER SHE WAS ASSORTING [place] FOR THE GRAVES. HAS TRIED MUSINEX AND NOSE SPRAY WITH NO RELEIF. Source of Information: Patient Exam Limitations: No Limitations History of Present Illness Date Seen by Provider: July 30, 2022 Allergies and Home Medications Allergies Coded Allergies: Iodinated Contrast Media (Unverified Allergy, Severe, HIVES, 11/11/16) codeine (Unverified Allergy, Intermediate, RASH, CAN TAKE PERCOCET, 11/11/16) paroxetine (Verified Allergy, Intermediate, RASH, 11/11/16) paclitaxel (Verified Allergy, Unknown, 04/29/19) povidone-iodine (Unverified Allergy, Unknown, rash, 11/11/16) soap (Unverified Allergy, Unknown, rash, 11/11/16) Patient Home Medication List Anastrozole (Anastrozole) 1 Mg Tablet, 1 MG PO DAILY, (Reported) Entered as Reported by: KYUNG KOHLER on 11/11/16 0915 Azithromycin (Azithromycin) 250 Mg Tablet, 250 MG PO DAILY Prescribed by: ARIELA PIPER on 01/27/21 1140 Calcium Carbonate/Vitamin D3 (Caltrate 600 + D Soft Chew Tab) 1 Each Tab.chew, 1 EACH PO BID, (Reported) Entered as Reported by: DENNISE SHIELDS on 04/29/19 1246 Cetirizine HCl (Zyrtec) 10 Mg Tablet, 10 MG PO DAILY, (Reported) Entered as Reported by: KYUNG KOHLER on 11/11/16 0915 Ergocalciferol (Vitamin D2) (Vitamin D2) Unknown Strength Tablet, 1 TAB PO BID, (Reported) Entered as Reported by: DENNISE SHIELDS on 04/29/19 1246 Fluticasone Propionate (Flovent Hfa 110 mcg) 1 Ea Aero, 2 PUFF IH DAILY Prescribed by: ARIELA PIPER on 01/27/21 1145 Ipratropium/Albuterol Sulfate (Iprat-Albut 0.5-3(2.5) mg/3 ml) 3 Ml Ampul.neb, 3 ML IH Q6H PRN for SHORTNESS OF BREATH Prescribed by: ARIELA PIPER on 01/27/21 1140 Nebulizer and Compressor (Compressor Nebulizer System) 1 Each Each, EACH MC DAILY PRN PRN for WHEEZING, (DME) Prescribed by: ARIELA PIPER on 01/27/21 1142 Omeprazole (Omeprazole) 20 Mg Capsule.dr, 20 MG PO DAILY, (Reported) Entered as Reported by: DENNISE SHIELDS on 04/29/19 1246 Prednisone (Prednisone) 20 Mg Tab, 40 MG PO DAILY Prescribed by: ARIELA PIPER on 01/27/21 1140 Rosuvastatin Calcium (Rosuvastatin Calcium) 10 Mg Tablet, 10 MG PO HS, (Reported) Entered as Reported by: DENNISE SHIELDS on 04/29/19 1246 Past Pioafql-Azmpgq-Oqohpi Hx Patient Social History Tobacco Use?: No Substance use?: No Alcohol Use?: No Immunizations Up To Date Tetanus Booster (TDap): Less than 5yrs COVID19 Vaccine [employer]: [employer] Seasonal Allergies Seasonal Allergies: Yes Past Medical History Surgeries: Yes (BILAT MASTECOTOMY, ) Breast, Ear Surgery, Hysterectomy Respiratory: No Chronic Bronchitis, COPD Currently Using CPAP: No Currently Using BIPAP: No Cardiac: Yes High Cholesterol, Hypertension Neurological: No Reproductive Disorders: No Female Reproductive Disorders: Denies Sexually Transmitted Disease: No HIV/AIDS: No Genitourinary: No Gastrointestinal: No Gastroesophageal Reflux Musculoskeletal: No Endocrine: No HEENT: No Loss of Vision: Bilateral Hearing Impairment: Hard of Hearing Cancer: Yes Breast Did You Recieve Any Treatments: Yes What Type of Treatment Did You: Chemotherapy, Radiation, Surgical Intervention Psychosocial: No Integumentary: No Blood Disorders: No Adverse Reaction/Blood Tranf: No Family Medical History Cardiovascular disease 19 FATHER 19 MOTHER Coronary thrombosis 19 MOTHER Diabetes mellitus 19 FATHER FH: breast cancer 19 MOTHER Physical Exam Vital Signs Vital Signs - First Documented 07/30/22 07:10 Temp 35.9 Pulse 87 Resp 16 B/P (MAP) 136/79 (98) Pulse Ox 95 O2 Delivery Room Air Capillary Refill : Less Than 3 Seconds Height, Weight, BMI Height: 5'2.00" Weight: 155lbs. 0.0oz. 70.266492gx; 31.00 BMI Method:Stated Procedures/Interventions Suture Size: 4-0 Progress/Results/Core Measures Suspected Sepsis SIRS Temperature: Pulse: 87 Respiratory Rate: 16 Blood Pressure 136 /79 Mean: 98 Results/Orders My Orders Orders - QUENTIN ARORA MD Albuterol Inhaler (Albuterol) (07/30/22 10:00) Vital Signs/I&O 07/30/22 07:10 Temp 35.9 Pulse 87 Resp 16 B/P (MAP) 136/79 (98) Pulse Ox 95 O2 Delivery Room Air Capillary Refill : Less Than 3 Seconds Blood Pressure Mean: 98 Departure Impression Primary Impression: COPD (chronic obstructive pulmonary disease) with acute bronchitis Disposition: HOME, SELF-CARE Condition: Improved Departure-Patient Inst. Decision time for Depature: 08:03 Referrals: ANITA ALFARO MD (PCP/Family) Primary Care Physician Patient Instructions: Bronchitis, Adult ED, Chronic obstructive pulmonary disease (COPD) Add. Discharge Instructions: You may continue your maintenance medications including Symbicort, Flonase, Sunitha, and Singulair. Use albuterol either via inhaler or nebulizer machine for rescue treatment of wheezing and uncontrolled cough. Use the nebulizer every 4 hours as needed or the inhaler up to 4 puffs in a 4-hour period of time. If inhalers alone are not effective, you may start prednisone and azithromycin tomorrow. Take prednisone early in the day to avoid sleep disturbance and with food or milk to avoid upset stomach. Follow-up with your primary care provider next week. Return to care if you have worsening symptoms despite following these instructions. All discharge instructions reviewed with patient and/or family. Voiced understanding. Scripts Albuterol Sulfate (Albuterol Sulfate) 2.5 Mg/3 Ml (0.083 %) Vial.neb 2.5 MG INH Q4H PRN for WHEEZING, #50 EA 1 Refill Prov: QUENTIN ARORA MD 07/30/22 Prednisone (Prednisone) 20 Mg Tab 40 MG PO DAILY, #8 TAB 0 Refills Prov: QUENTIN ARORA MD 07/30/22 Azithromycin (Azithromycin) 250 Mg Tablet 250 MG PO UD, #6 TAB TAKE 2 TABLETS ON DAY ONE THEN TAKE 1 TABLET DAILY FOR FOUR MORE DAYS Prov: QUENTIN ARORA MD 07/30/22 QUENTIN ARORA MD July 30, 2022 08:07
[2022-07-30] MEDS ORDERED: RT-ALBUTEROL HFA 8.5 GM INHALER IH SCH (10:00)
== END 2022-07-30 08:18 | disposition home or self-care (01) ==
LOC: EDUNIT# 07:07 → ER 07:09
DX: J44.0 Chronic obstructive pulmonary disease with (acute) lower respiratory infection (principal)
CPT/HCPCS: 99281

== ENCOUNTER → 2022-09-20 | Outpatient (CLI) | payer MEDICARE, OTHER ==
[~2022-09-20] MED LIST changes: +ALBU2.5V4 INH
--- NOTE | 2022-09-20 17:13 | Diagnostic Imaging Report ---
INDICATION: Osteopenia COMPARISON: DEXA scan on 09/15/2020 FINDINGS: AP Spine L1-L4: [BMD (g/cm2): 1.057] [T-Score: -1.2] [Z-Score: 0.1] [BMD Previous: 0.971] [BMD % Change: 8.9*] LT Hip Neck: [BMD (g/cm2): 0.859] [T-Score: -1.3] [Z-Score: 0.3] LT Hip Total: [BMD (g/cm2):0.947] [T-Score:-0.5] [Z-Score: 0.9] [BMD Previous: 0.894] [BMD % Change: 5.9*] RT Hip Neck: [BMD (g/cm2):0.795] [T-Score:-1.7] [Z-Score:-0.1] RT Hip Total: [BMD (g/cm2):0.895] [T-score:-0.9] [Z-Score:0.5] [BMD Previous:0.904] [BMD % Change:-1.0] *Indicates significant change from prior examination based on 95% confidence level. World Health Organization criteria for BMD interpretation classify patients as Normal (T-score at or above -1.0), Osteopenic (T-score between -1.0 and -2.5) or Osteoporotic (T-score at or below -2.5). LIMITATIONS AND MODIFICATION: None. FRACTURE RISK (FRAX SCORE): The ten year probability of (%): Major Osteoporotic Fracture: [11.8] Hip Fracture: [2.7] IMPRESSION: 1. Osteoporosis. 2. No significant change in bone mineral density since prior examination. 3. See below National Osteoporosis Foundation guidelines on when to potentially initiate pharmacologic therapy. Based on the National Osteoporosis Foundation Guidelines, pharmacologic treatment should be initiated in any of the following, unless clinical conditions suggest otherwise: * Any patient with prior fragility fracture of the hip or vertebrae. A spine fracture indicates 5X risk for subsequent spine fracture and 2X risk for subsequent hip fracture. * Osteoporosis (T-score <-2.5). * Postmenopausal women and men age 50 and older with low bone mass/osteopenia (T-score between -1.0 and -2.5) by DXA and 10-year major osteoporotic fracture greater than 20% or a 10-year probability of hip fracture greater than 3%. These fracture risks are supplied above in the FRAX score, if applicable. * Clinician judgement and/or patient preferences may indicate treatment for people with 10-year fracture probabilities above or below these levels. Dictated by: Dictated on workstation # [id number]
== END ==
LOC: RAD 08:08
PROVIDERS: ATTEND Nurse Practitioner
DX: M81.0 Age-related osteoporosis without current pathological fracture (principal); M85.80 Other specified disorders of bone density and structure, unspecified site; C50.912 Malignant neoplasm of unspecified site of left female breast; Z79.811 Long term (current) use of aromatase inhibitors
CPT/HCPCS: 77080